=== PATIENT | male | born 1960 | race Caucasian/White ===

== ENCOUNTER 2019-06-09 07:42 | Day surgery (SDC) | payer OTHER ==
[~2019-06-09 07:42] MED LIST: COMBIVENT RESPIMAT IN; GLIMEPIRIDE2 MG PO; LISINOPRIL20 M1 PO; QVAR REDIH80 MCG/ACT MT; TRAZODONE100 MG PO
[2019-06-09] MEDS ORDERED: HYDROCODONE/ACE1 TAB PO (10:04)
[2019-06-09 10:59] VITALS: BP 163/101
== END 2019-06-09 10:30 | disposition home or self-care (01) ==
LOC: ORM 07:42
PROVIDERS: ATTEND Anesthesiology Pain Medicine
DX: M54.2 Cervicalgia (principal); R51 Headache; M47.812 Spondylosis without myelopathy or radiculopathy, cervical region

== ENCOUNTER 2021-01-19 15:18 | Observation (INO) | payer OTHER ==
[~2021-01-19] VITALS: Ht 177.8 cm; Wt 75.0 kg
[~2021-01-19 15:18] MED LIST changes: +HYDROCODONE/ACE1 TAB PO
--- NOTE | 2021-01-19 15:26 | NUR ---
TO RM 15 VIA WHEELCHAIR WITH CHEST PAIN
[2021-01-19 15:58] LABS: HEMATOCRIT 39.5 % (39.0-50.0); HEMOGLOBIN 13.4 g/dl (14.0-18.0); IMMATURE GRANULOCYTES 0.3 % (0.0-5.0); MEAN CELL VOLUME 90.4 fL CALC (80.0-100.0); MEAN CORPUSCULAR HGB 30.7 pG CALC (26.0-32.0); MEAN CORPUSCULAR HGB CONC 33.9 g/dL CAL (32.0-36.0); NEUT# 3.7 thou/uL (1.82-7.42); RED BLOOD COUNT 4.37 mill/uL (4.70-6.10); RED CELL DISTRI WIDTH 13.2 % (11.5-15.5)
--- NOTE | 2021-01-19 16:12 | NUR ---
Reassessment of patient completed. No distress noted.
[2021-01-19 16:17] LABS: ALBUMIN 4.2 g/dL (3.2-5.0); ALKALINE PHOSPHATASE 92 u/l (38-126); ANION GAP 10 (6-22 (CALC)); BILIRUBIN, TOTAL 0.6 mg/dL (0.0-1.4); BUN 26 mg/dL (9-20); BUN/CREATININE RATIO 24 (12-20 (CALC)); CARBON DIOXIDE 26 mmol/l (22-30); CHLORIDE 105 mmol/l (95-108); CREATININE 1.1 mg/dL (0.7-1.3); GFR > 60 ML/MIN (>=60 (CALC)); GFR FOR AFR.AMER. > 60 ML/MIN (>=60 (CALC)); LIPASE 83 u/l (23-300); POTASSIUM 4.2 mmol/l (3.5-5.1); SGOT/AST 26 u/l (17-59); SODIUM 137 mmol/l (137-146); TOTAL PROTEIN 8.3 g/dL (6.3-8.2)
--- NOTE | 2021-01-19 17:00 | NUR ---
Reassessment of patient completed. RATES PAIN 7/10
--- NOTE | 2021-01-19 18:01 | NUR ---
Reassessment of patient completed. No distress noted.
--- NOTE | 2021-01-19 18:19 | NUR ---
Reassessment of patient completed. No distress noted.
[2021-01-19 19:10] LABS: URINE BILIRUBIN - DIPSTICK NEGATIVE (NEGATIVE); URINE BLOOD DIPSTICK TRACE-LYSED (NEGATIVE); URINE CLARITY CLEAR; URINE COLOR YELLOW; URINE GLUCOSE - DIPSTICK NEGATIVE (NEGATIVE); URINE KETONE NEGATIVE (NEGATIVE); URINE LEUK ESTERASE NEGATIVE (Negative); URINE NITRITE - DIPSTICK NEGATIVE (Negative); URINE PROTEIN - DIPSTICK TRACE mg/dL (NEG-TRACE); URINE SPECIFIC GRAVITY 1.025; URINE UROBILINOGEN - DIPSTICK 0.2 E.U./dL (0.2)
--- NOTE | 2021-01-19 19:33 | NUR ---
Admission Note Report Given to: VALE JAVED Transported by: X Wheelchair Stretcher Transported with: X Nurse Transporter X Patent IV O2 X Sales Professional Bilingual Location: ICU X MS2
[2021-01-19 20:00] VITALS: BP 149/90
--- NOTE | 2021-01-19 22:53 | NUR ---
PT ARRIVED TO THE FLOOR AROUND 1939 ESCORTED BY ER STAFF VIA WHEELCHAIR. PT ORIENTED TO ROOM, HOW TO USE CALL DUVALL, AND HOW TO USE TELEVISION. EDUCATED PT ON THE IMPORTANCE OF NOTIFYING STAFF WITH ANY CONCERNS. PT C/O CHEST PAIN 07/13. THIS NURSE NOTIFIED PHYSICIAN THAT PT HAD PAIN THERE WERE NO ORDERS FOR PAIN MANAGEMENT. NEW ORDERS RECIVED FOR TRAMADOL AND TORADOL Q 8 HOURS PRN. PT BREWATHING EVEN AND UNLABORED, WHEEZING NOTED THROUGHOUT, NOTIFIED RESPIRATORY THERAPY SO THAT PT COULD RECEIVE A BREATHING TREATMENT. PT IS RUNNING SR 85 ON TELE. TROPONINS ARE NEGATIVE AT THIS TIME. PT REPORTS HE JUST HAD LEFT SHOULDER SURGERY NOT LONG AGO, REPORTED HE JUST TOOK HIS ARM OUT OF THE SLING RECENTLY. PT REPORTED WHEN HE WAS AT HOME HE WAS COUGHING AND HEARD SOMETHING POP, SINCE THEN HE HAS BEEN HAVING STABBING LEFT CHEST WALL PAIN. PAIN IS WORSE WHEN COUGHING. IV #22 TO LEFT HAND AND #20 TO LAC, BOTH SITES FLUSH EASILY. PT IS A DIABETIC, DENIES FAMILY HISTORY OF DIABETES. HS BLOOD SUGAR WAS 88, PT S/O BROUGHT FOOD FOR HIM TONIGHT. PT ATE ENTIRE MEAL THAT WAS BROUGHT, NO NEED FOR BLOOD SUGAR INTERVENTION. NO INSULIN INDICATED. WILL MONITOR.
[2021-01-20] VITALS: BP 138/75
--- NOTE | 2021-01-20 00:24 | NUR ---
PT WITH FOOD SERVICE, WILL MONITOR FOR LAB RESULTS
--- NOTE | 2021-01-20 00:58 | NUR ---
PT RESRING QUIETLY IN BED AT THIS TIME. CONTINUES TO /O PAIN TO LEFT SHOULDER/L CHEST WALL. PT ADVISED THAT HE HAD HIS LEFT SHOULDER SURGERY ON 12/07/20 AND JUST REMOVED SLING TWO DAYS AGAO. WILL DAJUANUE TO VALERI.
[2021-01-20 04:00] VITALS: BP 121/80
--- NOTE | 2021-01-20 04:33 | NUR ---
PT RESTING QUIETLY, NO COMPLAINTS VOICED AT THIS TIME. NO S/S OF DISTRESS. PT IS NOT CURRENTLY C/O PAIN. WILL CONTINUE TO MONITOR.
--- NOTE | 2021-01-20 05:19 | NUR ---
Patient decides to leave AMA. Multiple attempts made to ecourage patient to remain here for continued treatment. Explained to patient all risks of leaving against medical advice including . Pt verbalized understanding of all risks. Pt also encouraged to return to [facility] at any time, especially if symptoms continue or become worse. Pt verbalized understanding.
== END 2021-01-20 05:15 | disposition left against medical advice (07) ==
LOC: ED 15:18 → ED-I 18:22 → ED 18:33 → MS2 18:34
PROVIDERS: ADMIT Internal Medicine; ATTEND Internal Medicine
DX: R07.89 Other chest pain (principal); I10 Essential (primary) hypertension; E11.9 Type 2 diabetes mellitus without complications; J44.9 Chronic obstructive pulmonary disease, unspecified; F17.200 Nicotine dependence, unspecified, uncomplicated; Z79.84 Long term (current) use of oral hypoglycemic drugs; Z20.822 Contact with and (suspected) exposure to COVID-19
CPT/HCPCS: G0378; Q9967

== ENCOUNTER 2021-08-22 19:20 | Emergency (ER) | payer OTHER ==
[~2021-08-22] VITALS: Ht 177.8 cm; Wt 68.0 kg
[2021-08-22 20:42] LABS: HEMATOCRIT 34.4 % (39.0-50.0); IMMATURE GRANULOCYTES 0.1 % (0.0-5.0); MEAN CELL VOLUME 92.7 fL CALC (80.0-100.0); MEAN CORPUSCULAR HGB 30.7 pG CALC (26.0-32.0); MEAN CORPUSCULAR HGB CONC 33.1 g/dL CAL (32.0-36.0); NEUT# 5.75 thou/uL (1.82-7.42); RED BLOOD COUNT 3.71 mill/uL (4.70-6.10); RED CELL DISTRI WIDTH 13.1 % (11.5-15.5)
[2021-08-22 20:47] LABS: HEMOGLOBIN 11.4 g/dl (14.0-18.0)
[2021-08-22] MEDS ORDERED: LIPITOR20 M1 PO (21:19)
[2021-08-22] MEDS ORDERED: MULTI VIT PO (21:20)
[2021-08-22] MEDS ORDERED: HYDROCHLOROTH12.5 M1 PO (21:20)
[2021-08-22] MEDS ORDERED: PREDNISONE50 MG PO (21:25)
[2021-08-22 22:32] VITALS: BP 163/88
== END 2021-08-22 22:32 | disposition home or self-care (01) ==
LOC: ED 19:20
PROVIDERS: Family Medicine
DX: J44.1 Chronic obstructive pulmonary disease with (acute) exacerbation (principal); I10 Essential (primary) hypertension; E11.9 Type 2 diabetes mellitus without complications; J44.9 Chronic obstructive pulmonary disease, unspecified; Z79.84 Long term (current) use of oral hypoglycemic drugs; Z20.822 Contact with and (suspected) exposure to COVID-19

== ENCOUNTER 2021-10-16 19:51 | Emergency (ER) | payer OTHER ==
[~2021-10-16] VITALS: Ht 177.8 cm; Wt 77.0 kg
[~2021-10-16 19:51] MED LIST changes: +HYDROCHLOROTH12.5 M1 PO; +LIPITOR20 M1 PO; +MULTI VIT PO; +PREDNISONE50 MG PO
[2021-10-16 21:40] LABS: URINE BILIRUBIN - DIPSTICK NEGATIVE (NEGATIVE); URINE BLOOD DIPSTICK SMALL (NEGATIVE); URINE COLOR YELLOW; URINE GLUCOSE - DIPSTICK NEGATIVE (NEGATIVE); URINE KETONE NEGATIVE (NEGATIVE); URINE LEUK ESTERASE NEGATIVE (NEGATIVE); URINE PROTEIN - DIPSTICK 30 mg/dL (NEG-TRACE); URINE SPECIFIC GRAVITY 1.015; URINE UROBILINOGEN - DIPSTICK 0.2 E.U./dL (0.2)
[2021-10-16 21:42] LABS: URINE NITRITE - DIPSTICK NEGATIVE (Negative)
[2021-10-16 21:47] LABS: URINE RBC 0-2 RBC/hpf (0-5); URINE WBC 0-2 WBC/hpf (0-5)
[2021-10-16] MEDS ORDERED: FLEXERIL5 M1 PO (22:01)
[2021-10-16] MEDS ORDERED: TORADOL PO (22:01)
[2021-10-16 22:28] VITALS: BP 158/92
== END 2021-10-16 22:36 | disposition home or self-care (01) ==
LOC: ED 19:51
DX: S39.012A Strain of muscle, fascia and tendon of lower back, initial encounter (principal); S39.011A Strain of muscle, fascia and tendon of abdomen, initial encounter; G89.29 Other chronic pain; M25.512 Pain in left shoulder; E11.9 Type 2 diabetes mellitus without complications; I10 Essential (primary) hypertension; J44.9 Chronic obstructive pulmonary disease, unspecified; F17.210 Nicotine dependence, cigarettes, uncomplicated; X58.XXXA Exposure to other specified factors, initial encounter; Z79.899 Other long term (current) drug therapy

== ENCOUNTER 2022-01-18 12:41 | Emergency (ER) | payer OTHER ==
[~2022-01-18] VITALS: Ht 177.8 cm; Wt 80.0 kg
[2022-01-18] VITALS (7 sets, daily range): BP systolic 108–125; BP diastolic 53–77
[~2022-01-18 12:41] MED LIST changes: +FLEXERIL5 M1 PO; -LISINOPRIL20 M1 PO; +TORADOL PO; +ZESTRIL40 MG PO
[2022-01-18 13:30] LABS: HEMATOCRIT 36.8 % (39.0-50.0); HEMOGLOBIN 12.3 g/dl (14.0-18.0); MEAN CELL VOLUME 91.8 fL CALC (80.0-100.0); MEAN CORPUSCULAR HGB 30.7 pG CALC (26.0-32.0); MEAN CORPUSCULAR HGB CONC 33.4 g/dL CAL (32.0-36.0); NEUT# 3.4 thou/uL (1.82-7.42); RED BLOOD COUNT 4.01 mill/uL (4.70-6.10); RED CELL DISTRI WIDTH 12.9 % (11.5-15.5)
[2022-01-18 13:51] LABS: ALBUMIN 4.1 g/dL (3.2-5.0); ALKALINE PHOSPHATASE 103 u/l (38-126); ANION GAP 13 (6-22 (CALC)); BILIRUBIN, TOTAL 0.4 mg/dL (0.0-1.4); BUN 24 mg/dL (9-20); BUN/CREATININE RATIO 23 (12-20 (CALC)); CARBON DIOXIDE 28 mmol/l (22-30); CHLORIDE 102 mmol/l (95-108); CREATININE 1.1 mg/dL (0.7-1.3); GFR > 60 ML/MIN (>=60 (CALC)); GFR FOR AFR.AMER. > 60 ML/MIN (>=60 (CALC)); SGOT/AST 32 u/l (17-59); SODIUM 139 mmol/l (137-146); TOTAL PROTEIN 8.6 g/dL (6.3-8.2)
[2022-01-18] MEDS ORDERED: FLOVENT HF110 MCG/AC IH (13:54)
[2022-01-18] MEDS ORDERED: SUBOXONE1 MI1 SL (13:55)
[2022-01-18] MEDS ORDERED: ALBUTEROL SUL0.083 % IN (13:57)
[2022-01-18] MEDS ORDERED: NEURONTIN100 MG PO (13:57)
[2022-01-18 14:03] LABS: MYOGLOBIN 117 ng/mL (0 - 121)
[2022-01-18 14:18] LABS: D-DIMER 0.43 mg/L (0.19-0.60)
[2022-01-18 14:22] LABS: PROTHROMBIN TIME 10.1 SECONDS (9.0-12.5)
[2022-01-18] MEDS ORDERED: NORVASC5 M1 PO (14:42)
== END 2022-01-18 15:10 | disposition home or self-care (01) ==
LOC: ED 12:41
PROVIDERS: Nurse Practitioner
DX: I10 Essential (primary) hypertension (principal); E11.9 Type 2 diabetes mellitus without complications; J44.9 Chronic obstructive pulmonary disease, unspecified; R11.0 Nausea; F17.200 Nicotine dependence, unspecified, uncomplicated; Z79.84 Long term (current) use of oral hypoglycemic drugs

== ENCOUNTER 2022-05-10 22:11 | Emergency (ER) | payer OTHER ==
[~2022-05-10] VITALS: Ht 198.1 cm; Wt 72.7 kg
[~2022-05-10 22:11] MED LIST changes: +ALBUTEROL SUL0.083 % IN; +FLOVENT HF110 MCG/AC IH; +NEURONTIN100 MG PO; +NORVASC5 M1 PO; +SUBOXONE1 MI1 SL
[2022-05-10 22:19] VITALS: BP 153/86
[2022-05-10 22:30] VITALS: BP 144/80
[2022-05-10 22:45] VITALS: BP 126/66
[2022-05-10 22:46] LABS: HEMOGLOBIN 14.2 g/dl (14.0-18.0); MEAN CELL VOLUME 94.7 fL CALC (80.0-100.0); MEAN CORPUSCULAR HGB 30.3 pG CALC (26.0-32.0); NEUT# 3.74 thou/uL (1.82-7.42); RED BLOOD COUNT 4.69 mill/uL (4.70-6.10)
[2022-05-10 22:47] LABS: HEMATOCRIT 44.4 % (39.0-50.0)
[2022-05-10 22:57] LABS: ALBUMIN 4.1 g/dL (3.2-5.0); ALKALINE PHOSPHATASE 121 u/l (38-126); AMYLASE 84 u/l (30-110); BUN 41 mg/dL (9-20); BUN/CREATININE RATIO 26 (12-20 (CALC)); CARBON DIOXIDE 25 mmol/l (22-30); CHLORIDE 110 mmol/l (95-108); CREATININE 1.6 mg/dL (0.7-1.3); GFR FOR AFR.AMER. 54 ML/MIN (>=60 (CALC)); GFR OTHER RACES 44 ML/MIN (>=60 (CALC)); LIPASE 46 u/l (23-300); SGOT/AST 30 u/l (17-59); SODIUM 141 mmol/l (137-146); TOTAL PROTEIN 8.9 g/dL (6.3-8.2)
[2022-05-10 22:58] LABS: ANION GAP 11 (6-22 (CALC)); BILIRUBIN, TOTAL 0.2 mg/dL (0.0-1.4); D-DIMER 1.71 mg/L (0.19-0.60); POTASSIUM 5.3 mmol/l (3.5-5.1)
[2022-05-10 23:01] VITALS: BP 117/63
[2022-05-10 23:02] LABS: ACT PARTIAL THROMBO TIME 24.7 SECONDS (20.0-32.5); INTERNATIONAL NORMALIZED RATIO 0.9 RATIO (0.7-1.3); PROTHROMBIN TIME 9.8 SECONDS (9.0-12.5)
[2022-05-10 23:09] LABS: MYOGLOBIN 113 ng/mL (0 - 121)
[2022-05-10 23:15] VITALS: BP 107/63
[2022-05-11] VITALS: BP 119/69
[2022-05-11 00:16] VITALS: BP 95/60
[2022-05-11] MEDS ORDERED: TORADOL PO (00:24)
[2022-05-11 00:34] VITALS: BP 95/60
== END 2022-05-11 00:41 | disposition home or self-care (01) ==
LOC: ED 22:11
PROVIDERS: Family Medicine
DX: R07.89 Other chest pain (principal); R91.8 Other nonspecific abnormal finding of lung field; E11.9 Type 2 diabetes mellitus without complications; I10 Essential (primary) hypertension; J44.9 Chronic obstructive pulmonary disease, unspecified; F17.210 Nicotine dependence, cigarettes, uncomplicated; Z79.84 Long term (current) use of oral hypoglycemic drugs
CPT/HCPCS: Q9967

== ENCOUNTER 2022-08-14 03:35 | Observation (INO) | payer OTHER ==
[2022-08-14] VITALS (14 sets, daily range): BP systolic 109–151; BP diastolic 56–82
[~2022-08-14] VITALS: Ht 198.1 cm; Wt 76.0 kg
[2022-08-14 04:21] LABS: IMMATURE GRANULOCYTES 0.2 % (0.0-5.0); MEAN CELL VOLUME 92.9 fL CALC (80.0-100.0); MEAN CORPUSCULAR HGB 30.3 pG CALC (26.0-32.0); MEAN CORPUSCULAR HGB CONC 32.6 g/dL CAL (32.0-36.0); NEUT# 10.31 thou/uL (1.82-7.42); RED BLOOD COUNT 3.66 mill/uL (4.70-6.10); RED CELL DISTRI WIDTH 13.9 % (11.5-15.5)
[2022-08-14 04:22] LABS: URINE BILIRUBIN - DIPSTICK NEGATIVE (NEGATIVE); URINE BLOOD DIPSTICK LARGE (NEGATIVE); URINE COLOR YELLOW; URINE GLUCOSE - DIPSTICK NEGATIVE (NEGATIVE); URINE KETONE NEGATIVE (NEGATIVE); URINE LEUK ESTERASE NEGATIVE (NEGATIVE); URINE PROTEIN - DIPSTICK >=300 mg/dL (NEG-TRACE); URINE SPECIFIC GRAVITY 1.025; URINE UROBILINOGEN - DIPSTICK 0.2 E.U./dL (0.2)
[2022-08-14 04:28] LABS: HEMOGLOBIN 11.1 g/dl (14.0-18.0)
[2022-08-14 04:30] LABS: URINE NITRITE - DIPSTICK NEGATIVE (Negative)
[2022-08-14 04:38] LABS: URINE AMORPH SEDIMENT MANY hpf (NONE-FER); URINE BACTERIA FEW hpf; URINE MUCUS MANY hpf (NONE-FEW); URINE SQUAMOUS EPITHELIAL CELL FEW EPI/hpf (0-FEW); URINE WBC 0-2 WBC/hpf (0-5)
[2022-08-14 04:40] LABS: ALBUMIN 3.9 g/dL (3.2-5.0); ALKALINE PHOSPHATASE 111 u/l (38-126); BUN 41 mg/dL (9-20); BUN/CREATININE RATIO 29 (12-20 (CALC)); CARBON DIOXIDE 23 mmol/l (22-30); CHLORIDE 108 mmol/l (95-108); CPK 559 u/l (52-200); CREATININE 1.5 mg/dL (0.7-1.3); ETHYL ALCOHOL 0 mg/dl (0-30); GFR FOR AFR.AMER. 58 ML/MIN (>=60 (CALC)); GFR OTHER RACES 48 ML/MIN (>=60 (CALC)); LIPASE 27 u/l (23-300); MAGNESIUM 1.9 mg/dL (1.6-2.3); SGOT/AST 37 u/l (17-59); SODIUM 140 mmol/l (137-146); TOTAL PROTEIN 8.5 g/dL (6.3-8.2)
[2022-08-14 04:45] LABS: ANION GAP 13 (6-22 (CALC)); BILIRUBIN, TOTAL 0.6 mg/dL (0.0-1.4); POTASSIUM 4.1 mmol/l (3.5-5.1)
[2022-08-15 00:21] VITALS: BP 119/98
[2022-08-15 03:56] VITALS: BP 138/70
[2022-08-15 06:19] LABS: HEMATOCRIT 30.6 % (39.0-50.0); HEMOGLOBIN 10.2 g/dl (14.0-18.0); MEAN CELL VOLUME 94.7 fL CALC (80.0-100.0); MEAN CORPUSCULAR HGB 31.6 pG CALC (26.0-32.0); MEAN CORPUSCULAR HGB CONC 33.3 g/dL CAL (32.0-36.0); RED BLOOD COUNT 3.23 mill/uL (4.70-6.10); RED CELL DISTRI WIDTH 14.2 % (11.5-15.5)
[2022-08-15 06:34] LABS: ALBUMIN 3.6 g/dL (3.2-5.0); ALKALINE PHOSPHATASE 84 u/l (38-126); ANION GAP 13 (6-22 (CALC)); BUN 44 mg/dL (9-20); BUN/CREATININE RATIO 35 (12-20 (CALC)); CARBON DIOXIDE 21 mmol/l (22-30); CHLORIDE 108 mmol/l (95-108); CREATININE 1.2 mg/dL (0.7-1.3); GFR FOR AFR.AMER. > 60 ML/MIN (>=60 (CALC)); GFR OTHER RACES > 60 ML/MIN (>=60 (CALC)); MAGNESIUM 2.3 mg/dL (1.6-2.3); POTASSIUM 4.3 mmol/l (3.5-5.1); SGOT/AST 48 u/l (17-59); SODIUM 137 mmol/l (137-146); TOTAL PROTEIN 7.6 g/dL (6.3-8.2)
[2022-08-15 06:40] VITALS: BP 142/80
[2022-08-15 10:33] VITALS: BP 138/75
[2022-08-15 10:41] VITALS: BP 138/75
[2022-08-15 14:42] VITALS: BP 163/92
[2022-08-15] MEDS ORDERED: PREDNISONE10 MG PO (17:30)
[2022-08-15] MEDS ORDERED: ZITHROMAX250 MG PO (17:30)
== END 2022-08-15 18:02 | disposition home or self-care (01) ==
LOC: ED 03:35 → ED-I 05:40 → ED 06:16 → MS2 06:17
PROVIDERS: Internal Medicine; ADMIT Internal Medicine; ATTEND Internal Medicine
DX: G93.40 Encephalopathy, unspecified (principal); R53.1 Weakness; N17.9 Acute kidney failure, unspecified; E86.0 Dehydration; G89.29 Other chronic pain; F11.20 Opioid dependence, uncomplicated; I10 Essential (primary) hypertension; E11.9 Type 2 diabetes mellitus without complications; J44.9 Chronic obstructive pulmonary disease, unspecified; E78.5 Hyperlipidemia, unspecified; F17.200 Nicotine dependence, unspecified, uncomplicated; R21 Rash and other nonspecific skin eruption; G57.11 Meralgia paresthetica, right lower limb; T38.3X6A Underdosing of insulin and oral hypoglycemic [antidiabetic] drugs, initial encounter; Z91.128 Patient's intentional underdosing of medication regimen for other reason
CPT/HCPCS: G0378; J2060; Q9967

== ENCOUNTER 2022-08-16 09:08 | Inpatient (IN) | payer OTHER ==
[2022-08-16] VITALS (9 sets, daily range): BP systolic 138–168; BP diastolic 85–103
[~2022-08-16] VITALS: Ht 198.1 cm; Wt 77.2 kg
[~2022-08-16 09:08] MED LIST changes: +PREDNISONE10 MG PO; +ZITHROMAX250 MG PO
[2022-08-16 09:48] LABS: HEMATOCRIT 32.1 % (39.0-50.0); HEMOGLOBIN 10.7 g/dl (14.0-18.0); IMMATURE GRANULOCYTES 0.2 % (0.0-5.0); MEAN CORPUSCULAR HGB CONC 33.3 g/dL CAL (32.0-36.0); NEUT# 13.65 thou/uL (1.82-7.42); RED BLOOD COUNT 3.45 mill/uL (4.70-6.10); RED CELL DISTRI WIDTH 14.2 % (11.5-15.5)
[2022-08-16 09:56] LABS: ALBUMIN 3.6 g/dL (3.2-5.0); ALKALINE PHOSPHATASE 86 u/l (38-126); ANION GAP 12 (6-22 (CALC)); BUN 29 mg/dL (9-20); BUN/CREATININE RATIO 31 (12-20 (CALC)); CARBON DIOXIDE 25 mmol/l (22-30); CHLORIDE 105 mmol/l (95-108); CREATININE 0.9 mg/dL (0.7-1.3); GFR FOR AFR.AMER. > 60 ML/MIN (>=60 (CALC)); GFR OTHER RACES > 60 ML/MIN (>=60 (CALC)); SGOT/AST 63 u/l (17-59); SODIUM 139 mmol/l (137-146); TOTAL PROTEIN 7.9 g/dL (6.3-8.2)
[2022-08-16 10:00] LABS: BILIRUBIN, TOTAL 0.3 mg/dL (0.0-1.4)
[2022-08-16 17:01] LABS: URINE BILIRUBIN - DIPSTICK NEGATIVE (NEGATIVE); URINE BLOOD DIPSTICK MODERATE (NEGATIVE); URINE COLOR YELLOW; URINE GLUCOSE - DIPSTICK NEGATIVE (NEGATIVE); URINE KETONE NEGATIVE (NEGATIVE); URINE LEUK ESTERASE NEGATIVE (NEGATIVE); URINE PH 6.5 (4.5-8.0); URINE PROTEIN - DIPSTICK 100 mg/dL (NEG-TRACE); URINE SPECIFIC GRAVITY 1.025; URINE UROBILINOGEN - DIPSTICK 0.2 E.U./dL (0.2)
[2022-08-16 17:02] LABS: URINE NITRITE - DIPSTICK NEGATIVE (Negative)
[2022-08-17] VITALS (10 sets, daily range): BP systolic 131–166; BP diastolic 70–89
[2022-08-17 05:33] LABS: HEMATOCRIT 28.7 % (39.0-50.0); HEMOGLOBIN 9.4 g/dl (14.0-18.0); MEAN CELL VOLUME 94.7 fL CALC (80.0-100.0); MEAN CORPUSCULAR HGB CONC 32.8 g/dL CAL (32.0-36.0); RED BLOOD COUNT 3.03 mill/uL (4.70-6.10); RED CELL DISTRI WIDTH 14.1 % (11.5-15.5)
[2022-08-17 05:42] LABS: ANION GAP 9 (6-22 (CALC)); BUN 34 mg/dL (9-20); BUN/CREATININE RATIO 31 (12-20 (CALC)); CARBON DIOXIDE 27 mmol/l (22-30); CHLORIDE 105 mmol/l (95-108); CREATININE 1.1 mg/dL (0.7-1.3); GFR FOR AFR.AMER. > 60 ML/MIN (>=60 (CALC)); GFR OTHER RACES > 60 ML/MIN (>=60 (CALC)); MAGNESIUM 2.4 mg/dL (1.6-2.3); POTASSIUM 4.8 mmol/l (3.5-5.1); SODIUM 136 mmol/l (137-146)
[2022-08-18] VITALS: BP 164/79
[2022-08-18 04:02] VITALS: BP 140/81
[2022-08-18 06:45] VITALS: BP 154/86
[2022-08-18 09:18] VITALS: BP 145/72
[2022-08-18 11:33] VITALS: BP 176/97
[2022-08-18] MEDS ORDERED: ROCEPHIN1 G1 IV (12:19)
[2022-08-18] MEDS ORDERED: PREDNISONE10 MG PO (12:22)
== END 2022-08-18 15:45 | disposition home or self-care (01) | DRG 872 ==
LOC: ED 09:08 → ED-I 11:00 → MS2 11:34 → ED 11:34 → MS2 08-18 15:45
PROVIDERS: Emergency Medicine; ADMIT Internal Medicine; ATTEND Internal Medicine
DX: R78.81 Bacteremia (principal); J44.1 Chronic obstructive pulmonary disease with (acute) exacerbation; I10 Essential (primary) hypertension; E11.40 Type 2 diabetes mellitus with diabetic neuropathy, unspecified; E78.00 Pure hypercholesterolemia, unspecified; F17.210 Nicotine dependence, cigarettes, uncomplicated; B96.1 Klebsiella pneumoniae [K. pneumoniae] as the cause of diseases classified elsewhere; Z79.84 Long term (current) use of oral hypoglycemic drugs; Z20.822 Contact with and (suspected) exposure to COVID-19
CPT/HCPCS: J1650

== ENCOUNTER 2022-11-25 08:04 | Emergency (ER) | payer OTHER ==
[~2022-11-25] VITALS: Ht 172.7 cm; Wt 79.4 kg
[~2022-11-25 08:04] MED LIST changes: +ROCEPHIN1 G1 IV
[2022-11-25] MEDS ORDERED: VOLTAREN1%GEL TOP (09:46)
[2022-11-25 10:05] VITALS: BP 139/89
== END 2022-11-25 11:01 | disposition home or self-care (01) ==
LOC: ED 08:04
DX: M25.551 Pain in right hip (principal); I10 Essential (primary) hypertension; E11.9 Type 2 diabetes mellitus without complications; J44.9 Chronic obstructive pulmonary disease, unspecified; E78.00 Pure hypercholesterolemia, unspecified; F17.200 Nicotine dependence, unspecified, uncomplicated

== ENCOUNTER 2023-03-13 16:24 | Observation (INO) | payer OTHER ==
[~2023-03-13] VITALS: Ht 172.7 cm; Wt 83.6 kg
[2023-03-13] VITALS (15 sets, daily range): BP systolic 140–174; BP diastolic 82–101
[~2023-03-13 16:24] MED LIST changes: +VOLTAREN1%GEL TOP
[2023-03-13 16:58] LABS: BASO% 0.9 % (0-3); EOS% 3.2 % (0-8); IMMATURE GRANULOCYTES 0.2 % (0.0-5.0); LYMPH% 28.1 % (15-41); MEAN CELL VOLUME 92.9 fL CALC (80.0-100.0); MEAN CORPUSCULAR HGB 29.8 pG CALC (26.0-32.0); MEAN CORPUSCULAR HGB CONC 32.1 g/dL CAL (32.0-36.0); MONO% 8.1 % (2-13); NEUT# 3.31 thou/uL (1.82-7.42); NEUT% 59.5 % (42-76); RED BLOOD COUNT 3.92 mill/uL (4.70-6.10); RED CELL DISTRI WIDTH 13.2 % (11.5-15.5)
[2023-03-13 16:59] LABS: HEMATOCRIT 36.4 % (39.0-50.0); HEMOGLOBIN 11.7 g/dl (14.0-18.0)
[2023-03-13 17:13] LABS: PROTHROMBIN TIME 9.7 SECONDS (9.0-12.5)
[2023-03-13 17:15] LABS: ALKALINE PHOSPHATASE 104 u/l (38-126); ANION GAP 9 (6-22 (CALC)); BILIRUBIN, TOTAL 0.2 mg/dL (0.2-1.3); BUN 31 mg/dL (9-20); BUN/CREATININE RATIO 24 (12-20 (CALC)); CARBON DIOXIDE 29 mmol/l (22-30); CHLORIDE 107 mmol/l (95-108); CREATININE 1.3 mg/dL (0.7-1.3); GFR FOR AFR.AMER. > 60 ML/MIN (>=60 (CALC)); GFR OTHER RACES 56 ML/MIN (>=60 (CALC)); POTASSIUM 4.3 mmol/l (3.5-5.1); SGOT/AST 28 u/l (17-59); SODIUM 141 mmol/l (137-146); TOTAL PROTEIN 8.8 g/dL (6.3-8.2)
[2023-03-13 18:23] LABS: URINE BILIRUBIN - DIPSTICK NEGATIVE (NEGATIVE); URINE BLOOD DIPSTICK SMALL (NEGATIVE); URINE COLOR YELLOW; URINE GLUCOSE - DIPSTICK NEGATIVE (NEGATIVE); URINE KETONE NEGATIVE (NEGATIVE); URINE LEUK ESTERASE NEGATIVE (NEGATIVE); URINE PROTEIN - DIPSTICK 100 mg/dL (NEG-TRACE); URINE UROBILINOGEN - DIPSTICK 0.2 E.U./dL (0.2)
[2023-03-13 18:24] LABS: URINE NITRITE - DIPSTICK NEGATIVE (Negative)
[2023-03-13 18:26] LABS: URINE RBC 0-2 RBC/hpf (0-5); URINE WBC 0-2 WBC/hpf (0-5)
[2023-03-14 00:27] VITALS: BP 118/58
[2023-03-14 04:00] VITALS: BP 118/72
[2023-03-14 04:23] VITALS: BP 118/72
[2023-03-14 05:59] LABS: CHOLESTEROL HDL RATIO 4.6 (<4.4 (CALC)); HDL CHOLESTEROL 35 mg/dL (39.0-59.0); MAGNESIUM 1.9 mg/dL (1.6-2.3); TOTAL CHOLESTEROL 160 mg/dl (0-199)
[2023-03-14 06:04] LABS: C-REACTIVE PROTEIN < 0.5 mg/dL (0-0.9); CALCULATED LDLCHOLESTEROL 33 mg/dL (62-129 (CALC)); TOTAL TRIGLYCERIDES 462 mg/dl (0-149); VLDL CHOLESTROL 92 mg/dl (4-45 (CALC))
[2023-03-14 06:05] LABS: ALBUMIN 3.4 g/dL (3.2-5.0); ALKALINE PHOSPHATASE 94 u/l (38-126); ANION GAP 6 (6-22 (CALC)); BILIRUBIN, TOTAL 0.2 mg/dL (0.2-1.3); BUN 29 mg/dL (9-20); BUN/CREATININE RATIO 23 (12-20 (CALC)); CARBON DIOXIDE 30 mmol/l (22-30); CHLORIDE 107 mmol/l (95-108); CREATININE 1.3 mg/dL (0.7-1.3); GFR FOR AFR.AMER. > 60 ML/MIN (>=60 (CALC)); GFR OTHER RACES 56 ML/MIN (>=60 (CALC)); POTASSIUM 4.1 mmol/l (3.5-5.1); SGOT/AST 27 u/l (17-59); SODIUM 139 mmol/l (137-146); TOTAL PROTEIN 7.7 g/dL (6.3-8.2)
[2023-03-14 07:30] VITALS: BP 117/55
[2023-03-14 10:41] LABS: BASO% 0.8 % (0-3); EOS% 4.2 % (0-8); HEMATOCRIT 33.4 % (39.0-50.0); HEMOGLOBIN 10.9 g/dl (14.0-18.0); IMMATURE GRANULOCYTES 0.3 % (0.0-5.0); LYMPH% 32.3 % (15-41); MEAN CELL VOLUME 93.6 fL CALC (80.0-100.0); MEAN CORPUSCULAR HGB 30.5 pG CALC (26.0-32.0); MEAN CORPUSCULAR HGB CONC 32.6 g/dL CAL (32.0-36.0); MONO% 7.2 % (2-13); NEUT# 3.29 thou/uL (1.82-7.42); NEUT% 55.2 % (42-76); RED BLOOD COUNT 3.57 mill/uL (4.70-6.10); RED CELL DISTRI WIDTH 13.6 % (11.5-15.5)
[2023-03-14 12:00] VITALS: BP 119/72
[2023-03-14] MEDS ORDERED: ASPIRIN 81 LOW81 MG PO (14:34)
== END 2023-03-14 15:03 | disposition home or self-care (01) ==
LOC: ED 16:24 → ED-I 19:00 → ED 19:16 → MS2 19:17
PROVIDERS: Family Medicine; Nurse Practitioner Family; ADMIT Internal Medicine; ATTEND Internal Medicine
DX: R20.2 Paresthesia of skin (principal); R47.81 Slurred speech; R53.1 Weakness; R07.89 Other chest pain; I10 Essential (primary) hypertension; E11.9 Type 2 diabetes mellitus without complications; J43.9 Emphysema, unspecified; E78.00 Pure hypercholesterolemia, unspecified; F17.200 Nicotine dependence, unspecified, uncomplicated; Z79.84 Long term (current) use of oral hypoglycemic drugs
CPT/HCPCS: G0378; J1650; J2060; Q9967

== ENCOUNTER 2023-07-05 14:43 | Emergency (ER) | payer OTHER ==
[~2023-07-05] VITALS: Ht 172.7 cm; Wt 77.2 kg
[2023-07-05] VITALS (9 sets, daily range): BP systolic 126–151; BP diastolic 77–88
[~2023-07-05 14:43] MED LIST changes: +ASPIRIN 81 LOW81 MG PO
[2023-07-05 15:34] LABS: BASO% 0.7 % (0-3); EOS% 2.5 % (0-8); HEMATOCRIT 31.5 % (39.0-50.0); HEMOGLOBIN 10.5 g/dl (14.0-18.0); IMMATURE GRANULOCYTES 0.1 % (0.0-5.0); LYMPH% 22.4 % (15-41); MEAN CELL VOLUME 92.4 fL CALC (80.0-100.0); MEAN CORPUSCULAR HGB 30.8 pG CALC (26.0-32.0); MEAN CORPUSCULAR HGB CONC 33.3 g/dL CAL (32.0-36.0); NEUT# 5.03 thou/uL (1.82-7.42); NEUT% 67.3 % (42-76); RED BLOOD COUNT 3.41 mill/uL (4.70-6.10); RED CELL DISTRI WIDTH 13.5 % (11.5-15.5)
[2023-07-05 15:51] LABS: ALBUMIN 3.4 g/dL (3.2-5.0); ALKALINE PHOSPHATASE 101 u/l (38-126); ANION GAP 10 (6-22 (CALC)); BILIRUBIN, TOTAL 0.4 mg/dL (0.2-1.3); BUN 29 mg/dL (8-23); BUN/CREATININE RATIO 23 (12-20 (CALC)); CARBON DIOXIDE 29 mmol/l (22-30); CHLORIDE 104 mmol/l (95-108); CREATININE 1.3 mg/dL (0.7-1.3); GFR FOR AFR.AMER. > 60 ML/MIN (>=60 (CALC)); GFR OTHER RACES 56 ML/MIN (>=60 (CALC)); LIPASE 54 u/l (23-300); POTASSIUM 4.7 mmol/l (3.5-5.1); SGOT/AST 27 u/l (19-48); SODIUM 139 mmol/l (137-146); TOTAL PROTEIN 7.9 g/dL (6.3-8.2)
[2023-07-05 16:54] LABS: URINE BILIRUBIN - DIPSTICK Negative (NEGATIVE); URINE BLOOD DIPSTICK Moderate (NEGATIVE); URINE COLOR Yellow; URINE GLUCOSE - DIPSTICK Negative (NEGATIVE); URINE KETONE Negative (NEGATIVE); URINE LEUK ESTERASE Negative (NEGATIVE); URINE NITRITE - DIPSTICK Negative (Negative); URINE PH 5.5 (4.5-8.0); URINE PROTEIN - DIPSTICK >=300 mg/dL (NEG-TRACE); URINE SPECIFIC GRAVITY 1.025; URINE UROBILINOGEN - DIPSTICK 0.2 E.U./dL (0.2)
[2023-07-05 17:01] LABS: URINE RBC 0-2 RBC/hpf (0-5)
[2023-07-05] MEDS ORDERED: ZOFRAN4 MG/TAB PO (17:47)
== END 2023-07-05 18:43 | disposition home or self-care (01) ==
LOC: ED 14:43
PROVIDERS: Family Medicine
DX: R10.31 Right lower quadrant pain (principal); I10 Essential (primary) hypertension; E11.9 Type 2 diabetes mellitus without complications; E78.00 Pure hypercholesterolemia, unspecified; J44.9 Chronic obstructive pulmonary disease, unspecified; F17.200 Nicotine dependence, unspecified, uncomplicated; Z79.84 Long term (current) use of oral hypoglycemic drugs
CPT/HCPCS: Q9967

== ENCOUNTER 2023-12-01 06:20 | Day surgery (SDC) | payer OTHER ==
[~2023-12-01] VITALS: Ht 170.2 cm; Wt 80.3 kg
[~2023-12-01 06:20] MED LIST changes: +AMLODIPINE BESYL5 MG PO; +COZAAR100 MG PO; +CYMBALTA30 MG PO; +GLIPIZIDE5 M2 PO; +NEURONTIN300 MG PO; +PROTONIX40 M2 PO; +VOLTAREN - GENE75 MG PO; +ZOFRAN4 MG/TAB PO
[2023-12-01 09:02] VITALS: BP 156/89
== END 2023-12-01 09:28 | disposition home or self-care (01) ==
LOC: ORM 06:20
PROVIDERS: ATTEND Internal Medicine Gastroenterology
DX: C18.0 Malignant neoplasm of cecum (principal); K64.8 Other hemorrhoids; K29.70 Gastritis, unspecified, without bleeding; K29.80 Duodenitis without bleeding; R91.1 Solitary pulmonary nodule

== ENCOUNTER 2023-12-24 08:09 | Inpatient (IN) | payer OTHER ==
[~2023-12-24] VITALS: Ht 172.7 cm; Wt 74.7 kg
[2023-12-25] MEDS ORDERED: SUCCINYLCHOLINE CHLORIDE 20 MG/ML 10ML VIAL IV ONE (10:13)
[2023-12-25] MEDS ORDERED: LIDOCAINE HCL 2% 2ML SDV IV ONE (10:13)
[2023-12-25] MEDS ORDERED: KETOROLAC TROMETHAMINE 30 MG/ML SDV IV ONE (10:13)
[2023-12-25] MEDS ORDERED: ACETAMINOPHEN 1,000 MG/100 ML VIAL IV ONE (10:13)
[2023-12-25] MEDS ORDERED: PHENYLEPHRINE HCL 10 MG/ML VIAL IV ONE (10:13)
[2023-12-25] MEDS ORDERED: ROCURONIUM BROMIDE 10 MG/ML 5ML VIAL IV ONE (10:13)
[2023-12-25] MEDS ORDERED: SUGAMMADEX SODIUM 200 MG/2 ML SDV IV ONE (10:13)
[2023-12-25] MEDS ORDERED: ONDANSETRON HCl 4 MG/2 ML SDV IV ONE (10:13)
[2023-12-25] MEDS ORDERED: SODIUM CHLORIDE 0.9% 1,000 ML BAG IV ONE (10:13)
[2023-12-25] MEDS ORDERED: PROPOFOL 200 MG/20 ML VIAL IV ONE (10:13)
[2023-12-25] MEDS ORDERED: LABETALOL HCL 100 MG/20 ML VIAL IV ONE (10:13)
[2023-12-25] MEDS ORDERED: HYDROCORTISONE SODIUM SUCCINAT 100 MG VIAL IV ONE (10:13)
[2023-12-25] MEDS ORDERED: GLYCOPYRROLATE 0.2 MG/ML IV ONE (10:13)
[2023-12-25] MEDS ORDERED: KETAMINE HCL 50 MG/ML 10 ML VIAL IV ONE (10:13)
[2023-12-25] MEDS ORDERED: ceFAZolin Sodium 2 GM/VIAL SDV ONE (10:24)
[2023-12-25] MEDS ORDERED: SODIUM CHLORIDE 0.9% 100 ML IV ONE (10:24)
[2023-12-25] MEDS ORDERED: FAMOTIDINE 10MG/ML 2ML SDV IV ONE (10:24)
[2023-12-25] MEDS ORDERED: SODIUM CHLORIDE 0.9% 1,000 ML IV ONE ×2 (10:24→14:57)
[2023-12-25] MEDS ORDERED: ALBUTEROL SULFATE 2.5 MG VIAL ONE (12:04)
[2023-12-25] MEDS ORDERED: LIDOcaine HCl 1% (Local Anesth.) 20 ML VIAL ONE (12:58)
[2023-12-25] MEDS ORDERED: SODIUM CHLORIDE 1,000 ML BTL IR ONE (12:58)
[2023-12-25] MEDS ORDERED: STERILE WATER FOR IRRIGATION 1,000 ML BTL IR ONE (12:58)
[2023-12-25] MEDS ORDERED: HYDROmorphone HCL 2 MG/AMP IV PRN (15:10)
[2023-12-25] MEDS ORDERED: DEXTROSE 5% w/NACL 0.45 1,000 ML IV PRN (15:10)
[2023-12-25] MEDS ORDERED: ONDANSETRON HCl 4 MG/2 ML SDV IV PRN (15:10)
[2023-12-25] MEDS ORDERED: SIMETHICONE 20 MG/0.3 ML PO PRN (15:10)
[2023-12-25] MEDS ORDERED: hydroCHLOROthiazide 12.5 MG/CAP PO SCH (15:11)
[2023-12-25] MEDS ORDERED: SODIUM CHLORIDE 0.9% 1,000 ML IV SCH (15:15)
[2023-12-25] MEDS ORDERED: HYDROmorphone HCL 2 MG/AMP ONE (15:44)
--- NOTE | 2023-12-25 16:40 | NUR ---
PT ARRIVED FROM OR TO RM 273 POST OP RIGHT HEMICOLECTOMY. PT IS DROWSY AND ORIENTED X 3. PT HAS C/O ABD PAIN AT 7/10 ON PAIN SCALE AT THIS TIME, MEDICATED IN OR FOR PAIN. PT #20 TO RAC CLEAN AND INTACT WITH LR INFUSING. PT LUNGS CLEAR AND DIMINISHED IN LOWER BASES, PT ENCOURAGED TO DEEP BREATH WITH INCETIVE SPIROMETER AT BEDSIDE. PT ABD IS NON DISTENDED WITH HYPO ACTIVE BS; PT HAS 4 INCISION SITE 3 COVERED WITH DERMABOND AND ONE MEDIAL DRESSING CLEAN AND INTACT. PT HAS ANGEL INTACT AND DRAINING CLEAR, YELLOW URINE AT THIS TIME. PT OREINTED TO RM. PT HAS CALL LIGHT WITHIN REACH AND SAFETY MEASURES IN PLACE AT THIS TIME.
[2023-12-25] MEDS ORDERED: KETOROLAC TROMETHAMINE 15 MG/ML SDV IV SCH (18:00)
[2023-12-25 20:28] VITALS: BP 149/74
[2023-12-25 20:33] VITALS: BP 148/79
--- NOTE | 2023-12-25 20:41 | NUR ---
Assessment complete. Patient alert and oriented x3. C/O abdominal pain at surgical site 08/12, medicated with dilaudid; blood pressure stable. Emptied approximately 1800ml clear, yellow urine from urinary catheter. Abdominal dressing clean dry and intact; small midline incision and 3 lap incisions noted. No further concerns expressed at this time. Call light within reach.
[2023-12-26] VITALS (7 sets, daily range): BP systolic 155–190; BP diastolic 79–88
[2023-12-26 05:25] LABS: BASO% 0.2 % (0-3); EOS% 0.4 % (0-8); HEMATOCRIT 30.9 % (39.0-50.0); HEMOGLOBIN 10.2 g/dl (14.0-18.0); IMMATURE GRANULOCYTES 0.5 % (0.0-5.0); LYMPH% 15.6 % (15-41); MEAN CELL VOLUME 91.7 fL CALC (80.0-100.0); MEAN CORPUSCULAR HGB 30.3 pG CALC (26.0-32.0); MONO% 4.2 % (2-13); NEUT# 8.91 thou/uL (1.82-7.42); NEUT% 79.1 % (42-76); RED BLOOD COUNT 3.37 mill/uL (4.70-6.10); RED CELL DISTRI WIDTH 15.5 % (11.5-15.5)
[2023-12-26 05:55] LABS: ALBUMIN 2.8 g/dL (3.2-5.0); ALKALINE PHOSPHATASE 82 u/l (38-126); ANION GAP 2 (6-22 (CALC)); BILIRUBIN, TOTAL 0.5 mg/dL (0.2-1.3); BUN 13 mg/dL (8-23); BUN/CREATININE RATIO 11 (12-20 (CALC)); CARBON DIOXIDE 30 mmol/l (22-30); CHLORIDE 107 mmol/l (95-108); CREATININE 1.2 mg/dL (0.7-1.3); GFR FOR AFR.AMER. > 60 ML/MIN (>=60 (CALC)); GFR OTHER RACES > 60 ML/MIN (>=60 (CALC)); SGOT/AST 26 u/l (19-48); SODIUM 136 mmol/l (137-146); TOTAL PROTEIN 6.9 g/dL (6.3-8.2)
--- NOTE | 2023-12-26 07:34 | NUR ---
patient glucose level is 140.
--- NOTE | 2023-12-26 08:00 | NUR ---
PATIENT ALERT AND ORINETED X3, IN SEMI LESTER POSTION, LABORED BREATHING ON 2L OF O2, PATIENT COMAPLINT OF PAIN LEVEL 10 OUT OF 10, INCISION LOOKED AT NO DRAINAGE AT SITES, HYPOACTIVE BOWEL SOUNDS, IV SITE IS RAC RUNNING WITH NS AT 12, SED ON BILATERAL LEGS, CALL LIGHT WITHIN REACH, VERBALIZED UNDERSTANDING ON HOW TOUSE, BED IN LOWEST POSTION, MEDICATION AND PLAN OF CARE REVIEWED,EDUCATED ON THE IMPORTANCE OF AMBULATING AND USE SPIROMETER, WILL CONTINUE TO EDUCATE, WILL MONITOR
[2023-12-26] MEDS ORDERED: DULOXETINE HCl 30 MG/CAP PO SCH (09:00)
[2023-12-26] MEDS ORDERED: LOSARTAN Potassium 50 MG/TAB PO SCH (09:00)
[2023-12-26] MEDS ORDERED: predniSONE 10 MG/TAB PO SCH (09:00)
[2023-12-26] MEDS ORDERED: GABAPENTIN 300 MG/CAP PO SCH (09:00)
[2023-12-26] MEDS ORDERED: amLODIPine BESYLATE 5 MG/TAB PO SCH ×2 (09:00→11:00)
[2023-12-26] MEDS ORDERED: GLIPIZIDE PO SCH (09:00)
[2023-12-26] MEDS ORDERED: PANTOPRAZOLE SODIUM Sesquihydr 40 MG/TAB PO SCH (09:00)
[2023-12-26] MEDS ORDERED: hydrALAZINE HCL 20 MG/ML VIAL(1 ML) IV PRN (11:00)
--- NOTE | 2023-12-26 11:14 | NUR ---
CALLED DR. LOMAS REGARDING PATIENT PAIN LEVEL, PATIENT STATES HIS PAIN IS 10/10, STATES IT TO PAINFUL TO MOVE OR ABULATE OR USE SPIORMETER, DR. LOMAS STATED TO CONTINUE DILAUDID Q2 HOURS FOR PAIN, PATIENT O2 WAS 88, INCREASED O2 L TO 3, PROVIDER NOTIFIED. PATIENT BLOOD PRESSURE WAS 190/88, DR. PORTER ROSARIOFIED OF PATIENT BLOOD PRESSURE ORDERED NORVASC 5MG AT THE MOMENT AND INCREASED TO 10 MG DAILY, AND APRESOLE IV 10 MG Q4 HOURS/PRN, PATIENT AWARE
--- NOTE | 2023-12-26 11:48 | NUR ---
REEDUCATED PATIENT ON THE IMPORTANCE OF MOVING AROUND, ABULATING AND USING THE INCENTIVE SPIROMETER, EDUCATED THE COMPLICATIONS THAT CAN ARISE WITH THE FAILURE OF THESE INTERVENTIONS; PATIENT STATED HE UNDERSTANDS AND REFUSES TO DO THEM AT THIS TIME, WILL CONTINUE TO MONTIOR AND EDUCATE AND NAJMA ANRP AWARE
[2023-12-26] MEDS ORDERED: INSULIN LISPRO 100 UNITS/ML ML SC SCH (12:00)
[2023-12-26] MEDS ORDERED: DEXTROSE 250 ML IV PRN (12:00)
--- NOTE | 2023-12-26 12:00 | NUR ---
PATEINT ALERT AND ORIENTED X3, BREATHING IS UNLABORED AND EVEN, ON3L OF 02, NO VISUAL SIGNS OF DISCOMORT AND DISTRESS, IV SITE CLEAN AND INTACT WITH RUNNING FLUIDS OF 125, STATES HIS PAIN SCALE IS 8 OUT OF 10, WILL CONTINUE TO MANAGE PAIN LEVEL, EDUCATED ON THE IMPORTANCE OF TRYING TO ABULATE, AND USE THE I/S STATED UNDERSTANDNING AND AWARE OF THE COMPLICATIONS THAT CAN HAPPEN, CALL LIGHT WITHIN REACH, VERBALIZED UNDERSTANDING ON HOW TO USE, BED INLOWEST POSTION, FREQUENT ROUNDING
--- NOTE | 2023-12-26 16:00 | NUR ---
PATIENT ALERT AND ORINTED X3, IN SEMI LESTER POSTION, ON 3L OF , OXYGEN BEEN WITHIN GOOD STATUS, BREATHING UNLABORED AND EVEM, WHEEZES HEARD IN LUNGS, PATIENT STATED HIS PAIN WAS 9/10, IV SITE WAS CLEAN AND INTACT WITH D2 RUNNING, ANGEL WAS WORKING GOOD WITH YELLOW URINE OUTPUT, ATTEMPTED TO GET PATIENT TO WALK AND PATIENT DECLINED, EDUCATED ON NEEDING TO WALK AND USE I/S, CALL LIGHT WITHIN REACH, PATIENT VERBALIZED UNDERSTANDING ON HOW TO USE, BED IN LOWEST POSTION, SAFTEY MEASURES IN PLACE
--- NOTE | 2023-12-26 18:36 | NUR ---
PATIENT AMBULATED DOWN HALLWAY WITH ASSISTANCE, ANGEL REMOVED, REDUCATED ON THE IMPORTANCE OF WALKING AND USING THE I/S. EDUCATED ON THE COMPLICATIONS THAT CAN ARISE IF NOT, PATIENT AND PATIENT STATED THEY UNDESTOOD
--- NOTE | 2023-12-26 18:43 | NUR ---
ANGEL REMOVED WITH NO ISSUES, PATIENT STATED NO DISCOMFORT
--- NOTE | 2023-12-26 20:00 | NUR ---
RECEIVED REPORT FROM NURSE VIDA, PATIENT SITTING IN BED, FAMILY IN ROOM PATIENT ALERT ORIENETED BREATHING SHALLOW, SPO2 AT 86% ON 2LPM INCREASED TO 3LPM MAINTAINING AT 90%, IV ON RAC D5 1/2 NS AT 125CC PER HOUR REMAINS ON NPO, PATIENT VOIDED 400CC DONG URINE, PATIENT EDUCATED AMD PERFORMED THE USE OF INCENTIVE SPIROMETER 1500 INSPIRATORY VOLUME, C/O PAIN PRN DILAUDID GIVEN, CALL LIGHT IN REACHED.
[2023-12-27] VITALS (11 sets, daily range): BP systolic 146–189; BP diastolic 85–95
--- NOTE | 2023-12-27 | NUR ---
PATINET0 VOIDED ANOTHER 350 CC YELLOW URINE, PATIENT REMAINS ON O2 @ 3LPM, C/O PAIN DUE TORADOL GIVEN.
--- NOTE | 2023-12-27 05:46 | NUR ---
PATIENT C/O SEVERE PAIN AFTER COUGHING AND STANDING UP FOR THE WEIGHT, DUE TORADOL GIVEN STILL HAVING PAIN, DILAUDID GIVEN, PATIENT BS 163
--- NOTE | 2023-12-27 07:15 | NUR ---
REPORT RECEIVED FROM CLARK CHURCHILL
[2023-12-27] MEDS ORDERED: amLODIPine BESYLATE 5 MG/TAB PO SCH (09:00)
--- NOTE | 2023-12-27 09:15 | NUR ---
PT RESTING IN SEMI FOWLERS POSITION, A&O X3;PT POD #2 RT HEMICOLLECTOMY;PT REPORTS ABDOMINAL PAIN AND IS MEDICATED WITH PRN DILAUDID PER ORDER;ASSESSMENT COMPLETED;RESPIRATIONS EVEN AND UNLABORED ON O2 @ 4L VIA NC;ABDOMINAL INCISIONS X3 INTACT AND WELL APPROX WITH DEMABOND IN PLACE;SCD'S NOTED;IV SITE PATENT INFUSING WITH EASE;NPO DIET REINFORCED AND PT VERBALIZES UNDERSTANDING;PT DENIES ANY ADDITIONAL NEEDS AND IS ENCOURAGED TO ZAIDA FOR ASSISTANCE IF NEEDED;FALL PRECAUTIONS REMAIN IN PLACE WITH BED IN THE LOWEST POSITION AND CALL LIGHT IN REACH;FREQUENT ROUNDS MADE.
--- NOTE | 2023-12-27 10:40 | NUR ---
AT BEDSIDE DISCUSSING POC
[2023-12-27] MEDS ORDERED: oxyCODONE 5MG/ ACETAMINOPHEN 325MG TAB PO PRN (11:00)
[2023-12-27] MEDS ORDERED: DOCUSATE CALCIUM 240 MG/CAP PO SCH (11:30)
--- NOTE | 2023-12-27 11:40 | NUR ---
PT RESTING IN SEMI FOWLERS POSITION;RESPIRATIONS EVEN AND UNLABORED ON O2 @ 4L VIA NC;PT MEDICATED WITH SCHEDULED TORADOL PER ORDER;IV SITE PATENT INFUSING WITH EASE;ACCUCHECK 160, PT COVERED WITH SLIDIG SCALE INSULIN PER ORDER;CLEAR LIQUID DIET PROVIDED PER ORDER;PT DENIES ANY ADDITIONAL NEEDS AND IS ENCOURAGED TO CALL FOR ASSISTANCE IF NEEDED;FALL PRECAUTIONS REMAIN IN PLACE WITH BED IN THE LOWEST POSITION AND CALL LIGHT IN REACH;FREQUENT ROUNDS MADE.
--- NOTE | 2023-12-27 12:41 | NUR ---
AT BEDSIDE DISCUSSING POC WITH PT
[2023-12-27] MEDS ORDERED: hydrALAZINE HCL 25 MG/TAB PO SCH (13:00)
--- NOTE | 2023-12-27 15:30 | NUR ---
PT RESTING IN SEMI FOWLERS POSITION WITH SPOUSE AT BEDSIDE ;RESPIRATIONS EVEN AND UNLABORED ON O2 @ 4L VIA NC;PT REPORTS ABDOMINAL PAIN AND IS MEDICATED WITH PRN DILAUDID 1MG SLOW IVP PER ORDER;IV SITE PATENT AND INFUSING WIH EASE;PT DENIES ANY ADDITIONAL NEEDS AND IS ENCOURAGED TO CALL FOR ASSISTANCE IF NEEDED;FALL PRECAUTIONS REMAIN IN PLACE WITH BED IN THE LOWEST POSITION AND CALL LIGHT IN REACH;FREQUENT ROUNDS MADE.
--- NOTE | 2023-12-28 07:10 | NUR ---
REPORT RECEIVED FROM CLARK RIVERS
[2023-12-28 07:42] VITALS: BP 185/91
[2023-12-28 08:27] VITALS: BP 172/89
--- NOTE | 2023-12-28 08:30 | NUR ---
PT OOB RESTING IN RECLINER WITH SPOUSE AT BEDSIDE,A&O X3;PT POD #3 RT HEMICOLLECTOMY;RESPIRATIONS EVEN AND UNLABORED ON O2 @ 3L VIA NC;PT PREVIOUSLY MEDICATED WITH PRN DILAUDID SLOW IVP;X3 ABDOMINAL INCISIONS PATENT WITH DERMOBOND IN PLACE;#20G TO RAC PATENT INFUSING D5 1/2 NS @ 75ML/HR PER ORDER;PT DEMONSTARTED I.S. USE,ENCOURAGED 10X PER HOUR. GOAL 1500;TELE MONITORING IN PLACE;ACCUCHECK 146, NO COVERAGE NEEDED;PT DENIES ANY ADDITIONAL NEEDS AND IS ENCOURAGED TO CALL FOR ASSISTANCE IF NEEDED;FALL PRECAUTIONS IN PLACE WITH CALL LIGHT IN REACH;FREQUENT ROUNDS MADE.
[2023-12-28] MEDS ORDERED: LOSARTAN Potassium 50 MG/TAB PO SCH ×2 (09:00)
--- NOTE | 2023-12-28 10:04 | NUR ---
AT BEDSIDE DISCUSSING POC WITH PT
[2023-12-28 11:02] VITALS: BP 150/83
--- NOTE | 2023-12-28 11:35 | NUR ---
PT OOB SLEEPING IN RECLINER;RESPIRATIONS APPEAR EVEN AND UNLABORED ON O2 @ 3L VIA NC;NO S/S OF DISTRESS NOTED;IV SITE TO RAC PATENT;ALL SAFETY PRECAUTIONS REMAIN IN PLACE WITH CALL LIGHT IN REACH;FREQUENT ROUNDS MADE.
[2023-12-28 12:40] VITALS: BP 149/85
--- NOTE | 2023-12-28 12:45 | NUR ---
PT MEDICATED WITH PRN PERCOCET 5/325MG PO AND ZOFRAN 4MG IVP PER REQUEST, FREQUENT ROUNDS MADE
--- NOTE | 2023-12-28 14:06 | NUR ---
PT AMBULATING ALL 3 HALLWAYS WITH A STEADY GAIT ACCOMPANIED BY SPOUSE.
--- NOTE | 2023-12-28 16:00 | NUR ---
PT APPEARS TO BE SLEEPING IN RECLINER WITH SPOUSE AT BEDSIDE;RESPIRATIONS EVEN AND UNLABORED ON ON O2 @ 3L VIA NC;NO S/S OF DISTRESS NOTED;IV SITE TO RAC REMAINS PATENT;ALL SAFETY PRECAUTIONS IN PLACE WITH CALL LIGHT IN REACH;FREQUENT ROUNDS MADE.
[2023-12-28 16:02] VITALS: BP 132/78
--- NOTE | 2023-12-28 16:15 | NUR ---
PT MEDICATED WITH PRN PERCOCET 5/325MG PER REQUEST FOR ABDOMINAL PAIN, FREQUENT ROUNDS MADE.
[2023-12-28 19:26] VITALS: BP 144/88
[2023-12-29] VITALS (9 sets, daily range): BP systolic 110–183; BP diastolic 68–94
[2023-12-29 06:36] LABS: BASO% 0.6 % (0-3); EOS% 1.7 % (0-8); HEMATOCRIT 32.8 % (39.0-50.0); IMMATURE GRANULOCYTES 0.1 % (0.0-5.0); LYMPH% 17.6 % (15-41); MEAN CELL VOLUME 90.6 fL CALC (80.0-100.0); MEAN CORPUSCULAR HGB 30.4 pG CALC (26.0-32.0); MEAN CORPUSCULAR HGB CONC 33.5 g/dL CAL (32.0-36.0); MONO% 7.9 % (2-13); NEUT# 5.24 thou/uL (1.82-7.42); NEUT% 72.1 % (42-76); RED BLOOD COUNT 3.62 mill/uL (4.70-6.10); RED CELL DISTRI WIDTH 15.3 % (11.5-15.5)
[2023-12-29 06:47] LABS: ANION GAP 7 (6-22 (CALC)); BUN 22 mg/dL (8-23); BUN/CREATININE RATIO 16 (12-20 (CALC)); CARBON DIOXIDE 27 mmol/l (22-30); CHLORIDE 105 mmol/l (95-108); CREATININE 1.4 mg/dL (0.7-1.3); GFR FOR AFR.AMER. > 60 ML/MIN (>=60 (CALC)); GFR OTHER RACES 52 ML/MIN (>=60 (CALC)); POTASSIUM 3.8 mmol/l (3.5-5.1); SODIUM 134 mmol/l (137-146)
[2023-12-29] MEDS ORDERED: SODIUM CHLORIDE 0.9% 1,000 ML IV SCH (11:00)
--- NOTE | 2023-12-29 20:00 | NUR ---
PATIENT RESTING IN BED AT THIS TIME-AWAKE ALERT AND ORIENTEDX3 WITH O2 VIA NASAL CANNULA IN PLACE AT 2LPM. PATIENT IS POST-OP RIGHT HEMIOCOLECTOMY FROM LAST WEEK. ABD IS DISTENDED WITH HYPOACTIVE BS. PATIENT STATES SMALL LOOSE STOOL EARLIER TODAY. DENIES ANY DIFFICULTY WITH URINATION. PATIENT WITH SALINE LOCK TO RAC INTACT. PATIENT TAKING PO FULL LIQUIDS IN SMALL AMTS. ENCOURAGED AMBULATION IN THE HALLS TONIGHT AND USE OF IS Q1H WHILE AWAKE. MEDICATED FOR PAIN WITH PERCOCET. SAFETY PRECAUTIONS REINFORCED. CALL LIGHT IN REACH. WILL CONT TO MONITOR.
--- NOTE | 2023-12-30 | NUR ---
PATIENT RESTING IN BED AT THIS TIME. S/O RESTING IN RECLINER. PATIENT MEDICATED WITH PERCOCET PO FOR POST-OP ABD PAIN AND WITH ZOFRAN 4MG IVP FOR NAUSEA. PATIENT STATES THAT HE THINKS THAT THE DILAUDID IS CAUSING HIM MORE NAUSEA AND WANTS TO STAY AWAY FROM IT. TAKING VERY LITTLE PO. IVF D51/2NS HUNG AND INFUSING AT 75CC/HR AT THIS TIME. ABD REMAINS DISTENDED WITH HYPOACTIVE BS. O2 VIA NASAL CANNULA IN PLACE AT 2LPM. CALL LIGHT IN REACH. WILL CONT TO MONITOR.
[2023-12-30 01:40] VITALS: BP 140/79
--- NOTE | 2023-12-30 04:15 | NUR ---
RESTING IN BED WITH O2 VIA NASAL CANNULA IN PLACE AT 2LPM. MEDICATED AGAIN WITH PERCOCET PER PATIENT REQUEST. IVF PATENT AND INFUSING VIA RIGHT AC SITE AT 75CC/HR. C/O REMAINS AT BEDSIDE. CALL LIGHT IN REACH. WILL CONT TO MONITOR.
[2023-12-30 04:50] VITALS: BP 140/74
[2023-12-30] MEDS ORDERED: INSULIN LISPRO 100 UNITS/ML ML SC SCH (07:00)
[2023-12-30 07:14] VITALS: BP 161/92
[2023-12-30 10:44] VITALS: BP 128/77
[2023-12-30 14:45] VITALS: BP 128/70
[2023-12-30 19:17] VITALS: BP 177/80
--- NOTE | 2023-12-30 20:00 | NUR ---
PATIENT SITTING UP IN BED WITH O2 VIA NASAL CANNULA IN PLACE. ALERT AND ORIENTEDX3 C/O POST-OP ABD PAIN. MEDICATED WITH PERCOCET 5/325MG PO FOR 8/10 PAIN. ABD REMAINS DISTENDED-HYPOACTIVE BS. STATES THAT HE DID HAVE WATERY BM ON DAYSHIFT. LUNGS ARE CLEAR BUT DIMINISHED. SALINE LOCK TO RAC SITE INTACT.ENCOURAGED USE OF IS Q1H WHILE AWAKE AND AMBULATION IN THE HALLS. VERBALIZES UNDERSTANDING. CALL LIGHT IN REACH. WILL CONT TO MONITOR.
[2023-12-31] VITALS (7 sets, daily range): BP systolic 118–180; BP diastolic 66–77
--- NOTE | 2023-12-31 00:17 | NUR ---
PATIENT SITTING UP IN BED- C/O ABD PAIN-=8/10 ON PAIN SCALE.MEDICATED WITH PERCOCET 5/325MG PO. IV SITE TO RAC IN NEED OF CHANGE AND WAS D/C'ED. NEW IV SITE STARTED TO RIGHT FOREARM-#22 GAUGE WITH GOOD BLOOD RETURN. BP IS ELEVATED-180/77-MEDICATED WITH APRESOLINE 10MG IVP ORDERED FOR HTN. RESTING IN RECLINER AT BEDSIDE. O2 VIA NASAL CANNULA IN PLACE WITH O2 SAT OF 92%. CALL LIGHT IN REACH. WILL CONT TO MONITOR.
--- NOTE | 2023-12-31 01:45 | NUR ---
PATIENT RESTING IN BED-BP HAS IMPROVED. O2 VIA NASAL CANNULA IN PLACE WITH O2 SAT OF 92%. REMAINS AT BEDSIDE IN RECLINER. CALL LIGHT IN REACH. WILL CONT TO MONITOR.
--- NOTE | 2023-12-31 04:36 | NUR ---
PATIENT RESTING IN BED WITH O2 VIA NASAL CANNULA IN PLACE. C/O ABD PAIN AND MEDICATED WITH PERCOCET FOR 8/10 ABD PAIN. PATIENT DID STATE THAT HE WAS UP TO THE BR AND DID HAVE ANOTHER WATERY GREEN STOOL. STATES THAT HE DID FEEL SOME RELEIF AFTER HAVING THE BM. DENIES ANY DIFFICULTY WITH URINATION. SALINE LOCK TO RIGHT FOREARM INTACT. REMAINS AT BEDSIDE IN RECLINER. PO INTAKEREMAINS SLUGGISH. CALL LIGHT IN REACH. WILL CONT TO MONITOR.
[2023-12-31 06:13] LABS: ANION GAP 6 (6-22 (CALC)); BUN 29 mg/dL (8-23); BUN/CREATININE RATIO 23 (12-20 (CALC)); CARBON DIOXIDE 28 mmol/l (22-30); CHLORIDE 104 mmol/l (95-108); CREATININE 1.3 mg/dL (0.7-1.3); GFR FOR AFR.AMER. > 60 ML/MIN (>=60 (CALC)); GFR OTHER RACES 56 ML/MIN (>=60 (CALC)); POTASSIUM 3.8 mmol/l (3.5-5.1); SODIUM 134 mmol/l (137-146)
--- NOTE | 2023-12-31 08:19 | NUR ---
SHIFT CHANGE REPORT, PT AWAKE ALERT AND ORIENTED RESTING IN BED, C/O SEVERE ABD PAIN @ 8/10 AT THIS TIME, O2 @ 2L VIA NC IN PLACE, CALL DUVALL IN REACH AND BED LOCKED IN LOWEST POSITION. PAIN CONCERN ADDRESSED. SPOUSE IN ROOM.
[2023-12-31] MEDS ORDERED: ONDANSETRON HCl 4 MG/2 ML SDV IV PRN (11:25)
--- NOTE | 2023-12-31 12:10 | NUR ---
C/O NAUSEA, MD NOTIFIED AND CHANGED FREQUENCY OF ANTIEMETIC FROM Q6HR PRN TO Q4 HR PRN, PT SITTING UP AT BEDSIDE AT THIS TIME, PAIN CONCERN ADDRESSED.
[2023-12-31] MEDS ORDERED: PERCOCET 5/325M1 TAB PO (15:25)
--- NOTE | 2023-12-31 17:18 | NUR ---
Discharge instructions given. Patient verbalizes understanding of same. Discharged in stable condition via Wheelchair to Home with spouse. All belongings sent with pt.
== END 2023-12-31 17:07 | disposition home or self-care (01) | DRG 331 ==
LOC: MS2 12-25 09:58 → OR 12-25 13:30 → MS2 12-31 17:07
PROVIDERS: ADMIT Surgery; ATTEND Surgery
PROC: 0DTF0ZZ Resection of Right Large Intestine, Open Approach (ICD-10-PCS; principal; 2023-12-25)
DX: C18.0 Malignant neoplasm of cecum (principal); I10 Essential (primary) hypertension; E11.9 Type 2 diabetes mellitus without complications; J44.9 Chronic obstructive pulmonary disease, unspecified; F17.210 Nicotine dependence, cigarettes, uncomplicated; Z79.84 Long term (current) use of oral hypoglycemic drugs
CPT/HCPCS: J0131; J0690

== ENCOUNTER 2024-11-03 09:35 | Emergency (ER) | payer OTHER ==
[~2024-11-03] VITALS: Ht 172.7 cm; Wt 92.9 kg
[~2024-11-03 09:35] MED LIST changes: +AMOXICILLIN250 M1 PO; +DONEPEZIL HYDRO10 MG PO; +DULOXETINE HCL60 MG PO; +HYDRALAZINE HYD25 MG PO; +HYDROCHLOROT25 MG PO; +LOSARTAN POTASS50 MG PO; +MODAFINIL200 MG PO; +MONTELUKAST SOD10 MG PO; +NORVASC10 M1 PO; +PAXLOVID 10 X 11 TAB PO; +PERCOCET 5/325M1 TAB PO; +PREDNISONE5 MG PO; +TRAMADOL HYDROC50 M1 PO; +VALTREX1 GM PO; +ZPAK PO
[2024-11-03] MEDS ORDERED: LIDOcaine HCl 1% (Local Anesth.) 20 ML VIAL STI STA (09:44)
[2024-11-03] MEDS ORDERED: POVIDONE IODINE 0.5 OZ/BTL TOP ONE (09:45)
[2024-11-03] MEDS ORDERED: Diph, Acellular Pertussis, Tet 0.5 ML/VIAL (Tdap) SDV IM ONE (09:45)
[2024-11-03 10:22] VITALS: BP 160/90
== END 2024-11-03 10:31 | disposition home or self-care (01) ==
LOC: ED 09:35
DX: S61.210A Laceration without foreign body of right index finger without damage to nail, initial encounter (principal); I10 Essential (primary) hypertension; E11.9 Type 2 diabetes mellitus without complications; J44.9 Chronic obstructive pulmonary disease, unspecified; F17.200 Nicotine dependence, unspecified, uncomplicated; X58.XXXA Exposure to other specified factors, initial encounter; Y92.009 Unspecified place in unspecified non-institutional (private) residence as the place of occurrence of the external cause; Z79.84 Long term (current) use of oral hypoglycemic drugs
CPT/HCPCS: 90715

== ENCOUNTER 2024-11-09 14:35 | Inpatient (IN) | payer OTHER ==
[~2024-11-09] VITALS: Ht 172.7 cm; Wt 91.2 kg
[2024-11-09] VITALS (20 sets, daily range): BP systolic 116–156; BP diastolic 67–85
--- NOTE | 2024-11-09 14:43 | NUR ---
PT WALKED BACK TO ER ROOM 6 WITH A STEADY GAIT, PTS SPOUSE AT SIDE
[2024-11-09] MEDS ORDERED: MAGNESIUM SULFATE 50% 1 GM/2 ML IV ONE (15:00)
[2024-11-09] MEDS ORDERED: methylPREDNISolone SODIUM SUCC 125 MG/2 ML SDV IV ONE (15:00)
[2024-11-09] MEDS ORDERED: IPRATROPIUM-Albuterol 0.5MG-2.5MG/3 ML NEB ONE ×3 (15:00)
[2024-11-09 15:09] LABS: BASO% 0.5 % (0-3); EOS% 1.3 % (0-8); HEMATOCRIT 32.5 % (39.0-50.0); HEMOGLOBIN 10.4 g/dl (14.0-18.0); IMMATURE GRANULOCYTES 0.2 % (0.0-5.0); LYMPH% 13.9 % (15-41); MEAN CELL VOLUME 95.9 fL CALC (80.0-100.0); MEAN CORPUSCULAR HGB 30.7 pG CALC (26.0-32.0); MONO% 3.6 % (2-13); NEUT# 6.87 thou/uL (1.82-7.42); NEUT% 80.5 % (42-76); RED BLOOD COUNT 3.39 mill/uL (4.70-6.10)
--- NOTE | 2024-11-09 15:15 | NUR ---
PT RESTING IN [place] RM 6, MADE COMFORTABLE, AT BEDSIDE, PT ON ROAD GANG SUPERVISOR,PT REMAINS STABLE.
[2024-11-09 15:22] LABS: ALBUMIN 3.2 g/dL (3.2-5.0); ALKALINE PHOSPHATASE 115 u/l (38-126); ANION GAP 4 (6-22 (CALC)); BILIRUBIN, TOTAL 0.2 mg/dL (0.2-1.3); BUN 34 mg/dL (8-23); BUN/CREATININE RATIO 22 (12-20 (CALC)); CARBON DIOXIDE 34 mmol/l (22-30); CHLORIDE 106 mmol/l (95-108); CREATININE 1.6 mg/dL (0.7-1.3); ESTIMATED GFR 48 ML/MIN (>=90 (CALC)); MAGNESIUM 2.5 mg/dL (1.6-2.3); POTASSIUM 5.1 mmol/l (3.5-5.1); SGOT/AST 26 u/l (19-48); SODIUM 139 mmol/l (137-146); TOTAL PROTEIN 8.8 g/dL (6.3-8.2)
[2024-11-09] MEDS ORDERED: MAGNESIUM SULFATE HEPTAHYDRATE 50 ML IV SCH (15:30)
--- NOTE | 2024-11-09 15:44 | NUR ---
PLACED PT ON 4L NC AT THIS TIME PER ABG RESULTS
--- NOTE | 2024-11-09 15:45 | NUR ---
PT REAINS STABLE, DENIES ANY NEEDS AT THIS TIME. IV INITIATED W/OUT INCIDENT, REMAINS ON EMBOSSING CLERK.
[2024-11-09 15:49] LABS: INTERNATIONAL NORMALIZED RATIO 0.9 RATIO (0.7-1.3); PROTHROMBIN TIME 9.8 SECONDS (9.0-12.5)
--- NOTE | 2024-11-09 16:20 | NUR ---
PT RESTING, REMAINS STABLE, PT DENIES C/P OR DISCOMFORT. PROVIDED ADDITIONAL PILLOWS FOR COMFORT. MONITOR IN PLACE
--- NOTE | 2024-11-09 17:00 | NUR ---
MD AT BEDSIDE, PLAN OF CARE EXPLAINED TO PT AND FAMILY, BOTH VERBALIZE UNDERSTANDING OF ALL D/C AND F/U INSTRUCTIONS. DENIES QUESTIONS UPON COMPLETION.
[2024-11-09] MEDS ORDERED: Heparin SODIUM (Porcine) 5,000 UNITS/ML SDV IV ONE (17:30)
[2024-11-09] MEDS ORDERED: Heparin SODIUM (Porcine) 500 ML IV PRN (17:30)
--- NOTE | 2024-11-09 17:30 | NUR ---
PT CONDITION REMAINS STABLE, PT VERBALIZES UNDERSTANDING OF PLAN OF CARE. PT DENIES ANY NEEDS AT THIS TIME.MEDICATION ADMINISTRATION, PT TOLERATES WELL. MED REC REVIEWED WITH PT AND FAMILY
--- NOTE | 2024-11-09 18:00 | NUR ---
PT REMAINS STABLE, PT DENIES NEEDS, DENIES C/P, SOB OR OTHER COMPLAINT.
[2024-11-09] MEDS ORDERED: LASIX 40 MG TAB40 MG PO (18:18)
[2024-11-09] MEDS ORDERED: HYDROCHLOROT25 MG PO (18:19)
--- NOTE | 2024-11-09 18:28 | NUR ---
REPORT TO ANGELITO RODAS
[2024-11-09] MEDS ORDERED: MAGNESIUM HYDROXIDE 30 ML UDC PO PRN (19:10)
[2024-11-09] MEDS ORDERED: ACETAMINOPHEN 325 MG/TAB PO PRN (19:10)
[2024-11-09] MEDS ORDERED: IPRATROPIUM-Albuterol 0.5MG-2.5MG/3 ML NEB PRN (19:10)
--- NOTE | 2024-11-09 20:00 | NUR ---
[id number] rec'd from er per wc to icu4. transferred self to bed. denies resp difficulty. airborne mission systems superintendent shows sinus rhythm. heparin drip infusing well. saline lock in place lac. history obtained per er record, pt & . oriented to room. fall precautions initiated. bed alarm on.
--- NOTE | 2024-11-09 20:30 | NUR ---
@ bedside. med list verified per rn.
--- NOTE | 2024-11-09 21:00 | NUR ---
remains @ bedside. recliner provided.
[2024-11-09] MEDS ORDERED: GABAPENTIN 300 MG/CAP PO SCH (21:07)
[2024-11-09] MEDS ORDERED: hydrALAZINE HCL 25 MG/TAB PO SCH (21:09)
[2024-11-09] MEDS ORDERED: methylPREDNISolone Sod Succ 40 MG/ML SDV IV SCH (22:00)
[2024-11-09] MEDS ORDERED: AZITHROMYCIN 500 MG in SODIUM CHLORIDE 0.9% 500 ML IV SCH (22:00)
--- NOTE | 2024-11-09 23:30 | NUR ---
lab here. blood drawn.
[2024-11-10] VITALS (25 sets, daily range): BP systolic 120–170; BP diastolic 68–87
--- NOTE | 2024-11-10 02:00 | NUR ---
resting quietly. no distress. asleep in recliner.
--- NOTE | 2024-11-10 04:00 | NUR ---
eyes closed. no distress. ekg monitor shows sinus rhythm.
[2024-11-10 06:07] LABS: HEMATOCRIT 30.6 % (39.0-50.0); MEAN CELL VOLUME 96.5 fL CALC (80.0-100.0); MEAN CORPUSCULAR HGB 31.5 pG CALC (26.0-32.0); MEAN CORPUSCULAR HGB CONC 32.7 g/dL CAL (32.0-36.0); RED BLOOD COUNT 3.17 mill/uL (4.70-6.10); RED CELL DISTRI WIDTH 16.8 % (11.5-15.5)
[2024-11-10 06:09] LABS: ALBUMIN 2.9 g/dL (3.2-5.0); BILIRUBIN, TOTAL 0.2 mg/dL (0.2-1.3); CREATININE 1.5 mg/dL (0.7-1.3); MAGNESIUM 2.8 mg/dL (1.6-2.3); TOTAL PROTEIN 8.2 g/dL (6.3-8.2)
[2024-11-10 06:18] LABS: POTASSIUM 5.5 mmol/l (3.5-5.1)
--- NOTE | 2024-11-10 07:40 | NUR ---
PT REPORT RECEIVED FROM INSERT MOLDING OPERATOR. PT SITTING ON SIDE OF BED, AT BEDSIDE, PT APPEARS ALERT/ORIENTED X3, DENIES ANY COMPLAINTS AT THIS TIME. WILL CONTINUE TO MONITER.
[2024-11-10] MEDS ORDERED: FUROSEMIDE 40 MG/TAB PO SCH (09:00)
[2024-11-10] MEDS ORDERED: amLODIPine BESYLATE 5 MG/TAB PO SCH (09:00)
[2024-11-10] MEDS ORDERED: LOSARTAN Potassium 50 MG/TAB PO SCH (09:00)
--- NOTE | 2024-11-10 12:33 | NUR ---
PT SITTING ON SIDE OF BED, NO COMPLAINTS. AT BEDSIDE.
--- NOTE | 2024-11-10 15:05 | NUR ---
PT TO ULTRASOUND FOR W/C FOR ECHO
--- NOTE | 2024-11-10 19:30 | NUR ---
awake. sitting on side of bed. denies resp diff. eating a salad with his . o2 cont per nc. director cardiac shows sinus rhythm. ivf infusing well. po fluids taken well. voids per urinal. fall precautions cont. bed alarm on.
[2024-11-10] MEDS ORDERED: ATORVASTATIN CALCIUM 20 MG/TAB PO SCH (21:00)
[2024-11-10] MEDS ORDERED: AZITHROMYCIN 500 MG in SODIUM CHLORIDE 0.9% 500 ML IV SCH (22:00)
[2024-11-10] MEDS ORDERED: AZITHROMYCIN 500 MG in SODIUM CHLORIDE 0.9% 250 ML IV SCH (22:00)
--- NOTE | 2024-11-10 22:00 | NUR ---
eyes closed. no distress. in recliner @ bedside using cell phone.
[2024-11-11] VITALS (14 sets, daily range): BP systolic 131–176; BP diastolic 70–97
--- NOTE | 2024-11-11 00:10 | NUR ---
eyes closed. no distress. satellite project site monitor shows sinus rhythm.
--- NOTE | 2024-11-11 02:00 | NUR ---
reting quietly. resps even & unlabored. no apparent distress. asleep in recliner.
--- NOTE | 2024-11-11 04:00 | NUR ---
eyes closed. no distress. phototypesetting equipment monitor shows sinus rhythm pacs pvcs.
--- NOTE | 2024-11-11 05:35 | NUR ---
lab here. blood drawn.
[2024-11-11 06:00] LABS: HEMATOCRIT 31.8 % (39.0-50.0); MEAN CELL VOLUME 99.4 fL CALC (80.0-100.0); MEAN CORPUSCULAR HGB 31.3 pG CALC (26.0-32.0); MEAN CORPUSCULAR HGB CONC 31.4 g/dL CAL (32.0-36.0); RED BLOOD COUNT 3.2 mill/uL (4.70-6.10); RED CELL DISTRI WIDTH 16.9 % (11.5-15.5)
[2024-11-11 06:27] LABS: ALBUMIN 2.8 g/dL (3.2-5.0); BILIRUBIN, TOTAL 0.2 mg/dL (0.2-1.3); CREATININE 1.5 mg/dL (0.7-1.3); MAGNESIUM 2.6 mg/dL (1.6-2.3)
[2024-11-11 06:34] LABS: POTASSIUM 5.7 mmol/l (3.5-5.1)
--- NOTE | 2024-11-11 07:49 | NUR ---
pt sitting up in bed at bedside, states he is feeling much better.
[2024-11-11] MEDS ORDERED: RIVAROXABAN 15 MG TAB PO SCH (09:00)
--- NOTE | 2024-11-11 10:16 | NUR ---
RESP HERE FOR WALK TEST. PT STOOD UP BY BED AND SATS DROPPED TO 82, HE STARTED TO WALK A ROUND THE BED AND SATS DROPPED FURTHER, ENDED WALK TEST AND PLACED PT BACK ON OXYGEN , NOTIFIED CASE MANAGEMENT THAT PT FAILED THE TEST.
[2024-11-11] MEDS ORDERED: XARELTO STARTER1 TAB PO (12:53)
[2024-11-11] MEDS ORDERED: OMNICEF300 MG PO (12:57)
--- NOTE | 2024-11-11 13:22 | NUR ---
PTS IV X2 REMOVED, DISCHARGE INST. GIVEN AND PT VOICES UNDERSTANDING. SENT HOME WITH O2 TANK AND TO CALL OXYGEN SERVICE WHEN THEY GET HOME. PT W/C TO [place] PER STAFF AND .
--- NOTE | 2024-11-12 11:27 | NUR ---
Discharge follow up call completed 11/12/24. Romero states patient is doing very well and is having no isssues since discharge. Patient has prescribed medication and has begun taking it as directed. Patient saw his PCP this morning and will see him again in 2 weeks. No needs or concerns vrbalized at this time.
== END 2024-11-11 13:30 | disposition home health service (06) | DRG 175 ==
LOC: ED 14:35 → ED-I 17:16 → ED 17:30 → ICU 17:31
PROVIDERS: Emergency Medicine; ADMIT Internal Medicine; ATTEND Internal Medicine
DX: I26.99 Other pulmonary embolism without acute cor pulmonale (principal); J96.01 Acute respiratory failure with hypoxia; J44.1 Chronic obstructive pulmonary disease with (acute) exacerbation; C90.00 Multiple myeloma not having achieved remission; R18.8 Other ascites; E11.22 Type 2 diabetes mellitus with diabetic chronic kidney disease; I12.9 Hypertensive chronic kidney disease with stage 1 through stage 4 chronic kidney disease, or unspecified chronic kidney disease; N18.31 Chronic kidney disease, stage 3a; D64.9 Anemia, unspecified; F17.200 Nicotine dependence, unspecified, uncomplicated; Z90.49 Acquired absence of other specified parts of digestive tract; Z79.84 Long term (current) use of oral hypoglycemic drugs; Z85.038 Personal history of other malignant neoplasm of large intestine; R14.0 Abdominal distension (gaseous)
CPT/HCPCS: J0456; J0696; J1644; J3475; Q9967

== ENCOUNTER 2024-11-13 08:41 | Emergency (ER) | payer OTHER ==
[~2024-11-13] VITALS: Ht 172.7 cm; Wt 89.3 kg
[2024-11-13] VITALS (11 sets, daily range): BP systolic 145–171; BP diastolic 89–103
[~2024-11-13 08:41] MED LIST changes: +LASIX 40 MG TAB40 MG PO; +OMNICEF300 MG PO; +XARELTO STARTER1 TAB PO
[2024-11-13 09:07] LABS: BASO% 0.3 % (0-3); EOS% 1.2 % (0-8); IMMATURE GRANULOCYTES 0.3 % (0.0-5.0); MEAN CELL VOLUME 94.7 fL CALC (80.0-100.0); MEAN CORPUSCULAR HGB 30.8 pG CALC (26.0-32.0); MEAN CORPUSCULAR HGB CONC 32.5 g/dL CAL (32.0-36.0); MONO% 6.2 % (2-13); NEUT# 7.5 thou/uL (1.82-7.42); RED BLOOD COUNT 4.16 mill/uL (4.70-6.10); RED CELL DISTRI WIDTH 16.5 % (11.5-15.5)
[2024-11-13 09:24] LABS: HEMATOCRIT 39.4 % (39.0-50.0); HEMOGLOBIN 12.8 g/dl (14.0-18.0)
[2024-11-13 10:03] LABS: ACT PARTIAL THROMBO TIME 23.7 SECONDS (20.0-32.5)
== END 2024-11-13 10:57 | disposition home or self-care (01) ==
LOC: ED 08:41
PROVIDERS: Emergency Medicine
DX: R04.0 Epistaxis (principal); I10 Essential (primary) hypertension; E11.9 Type 2 diabetes mellitus without complications; J44.89 Other specified chronic obstructive pulmonary disease; G20.A1 Parkinson's disease without dyskinesia, without mention of fluctuations; C90.00 Multiple myeloma not having achieved remission; F17.200 Nicotine dependence, unspecified, uncomplicated; Z99.81 Dependence on supplemental oxygen; Z85.038 Personal history of other malignant neoplasm of large intestine; Z79.84 Long term (current) use of oral hypoglycemic drugs; Z86.711 Personal history of pulmonary embolism; Z79.01 Long term (current) use of anticoagulants; Z90.49 Acquired absence of other specified parts of digestive tract